=== PATIENT | female | born 1980 | race Hispanic/Latino ===

== ENCOUNTER 2017-09-28 12:20 | Emergency (ER) | payer OTHER ==
[2017-09-28] MEDS ORDERED: Famotidine 20 MG TAB ONE (12:38)
[2017-09-28] MEDS ORDERED: diphenhydrAMINE 25 MG CAP ONE (12:38)
[2017-09-28] MEDS ORDERED: predniSONE 20 MG TAB ONE (12:38)
== END 2017-09-28 13:45 | disposition home or self-care (01) ==
LOC: SCSER 12:20
DX: L50.0 Allergic urticaria (principal); F17.210 Nicotine dependence, cigarettes, uncomplicated
CPT/HCPCS: 99282; J7506

== ENCOUNTER 2019-03-06 10:03 | Emergency (ER) | payer OTHER | END 2019-03-06 10:36 | disposition short-term general hospital (02) | LOC: SCSER 10:03 | DX: O26.893 Other specified pregnancy related conditions, third trimester (principal); R10.9 Unspecified abdominal pain; O99.343 Other mental disorders complicating pregnancy, third trimester; F41.9 Anxiety disorder, unspecified; Z87.891 Personal history of nicotine dependence; Z3A.34 34 weeks gestation of pregnancy | CPT/HCPCS: 99284 ==

== ENCOUNTER 2019-03-06 11:08 | Day surgery (SDC) | payer OTHER ==
--- NOTE | 2019-03-06 11:55 | PDOC.FPROB ---
FMR OB H&P: HPI - History of Present Illness Chief Complaint: Abdominal and Vaginal Pressure Indentification: 38 yo @ 32.3 wks by 14.3 wk sono History of Present Illness: Pt states that she has been having increased lower abdominal and vaginal pressure over the last month. She states this is normally worse after a day of working when she is on her feet for the majority of the day. She went to the [facility] today to be evaluated for this and was recommended to be seen in the ED for further evaluation. Pt notes that she was found to have cervical shortening early in her and was followed by MFM up until a month ago when they discharged her due to it being stable. Pt denies any vaginal bleeding , discharged, leakage of fluid, fevers, chills, or dysuria. Pt states that she is not having any sensation of contractions and that her lower abdominal discomfort is a constant pressure that gradually worsens throughout the day as she is on her feet. Had discussion with Dr. Philippe at [facility] - she was reported at the clinic that pt was complaining of contractions and w/ her history of cervical shortening she felt it best for pt to be seen in the ED. Primary Care Physician: Jose Martin FMR OB H&P: Current - Care : 9 Para: [id number] Gestational age: 32.3 weeks Due date: 04/28/2019 Dating Criteria: 14.3 week sono - OB Labs Blood type: B RH: positive Antibody Screen: negative HIV: negative RPR: negative HepBsAg: negative Rubella: immune Quad screen: unknown Urine drug screen: not done Gonorrhea: negative Chlamydia: negative Pap Smear: Pap Negative. 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 [facility] not c/w LMP. [facility] updated to 04/28/2019 - Additional Ultrasound Additional: 02/01/19 [facility] US- [place] 89%. Normal anatomy. Transvaginal cervical length measures 15-18mm. 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 History: high risk HPV Previous LEEP - Surgical History Sx History: Umbilical hernia Previous LEEP Dermoid cyst removal - Social History Social History: Previous tobacco and alcohol use in 1st trimester, not using currently - Family History Family History: FHx: HTN FMR OB H&P: Medications - Current Home Medications: Medication Instructions Recorded Confirmed Type Pnv No.95/Ferrous Fum/Folic AC 1 capsule PO DAILY 03/06/19 03/06/19 History [ Caplet] Pyridoxine HCl (Vitamin B6) [B-6] 1 capsule PO DAILY 03/06/19 03/06/19 History Allergies/Adverse Reactions: Allergies Allergy/AdvReac Type Severity Reaction Status Date / Time penicillin G Allergy Verified 03/06/19 13:00 FMR OB H&P: ROS - Review of Systems General: denies: fever/chills, weight/appetite/sleep changes Eyes: denies: vision changes, double vision ENT: denies: nasal congestion, rhinorrhea Cardiovascular: denies: chest pain, palpitation, edema Respiratory: denies: cough, congestion, shortness of breath Gastrointestinal: reports: abdominal pain. denies: nausea, vomiting, diarrhea Genitourinary (Female): reports: vaginal pressure. denies: dysuria, vaginal discharge, vaginal pain, vaginal bleeding, contractions Musculoskeletal: denies: pain, swelling Neurologic: denies: numbness, weakness, headache Integumentary: denies: itching, rash, lesions Psychological: denies: depression, anxiety FMR OB H&P: Vital Signs - Maternal Vital signs: BP: 110/62 HR: 83 Sat O2: 99% - Heart Tones Baseline: 155 Variability: moderate Acceleration: present Deceleration: absent Category: category 1 [place] contractions every: None FMR OB H&P: Physical Exam - Physical Exam General: NAD, awake, alert and oriented HEENT: EOMI, MMM, no scleral icterus, grossly normal vision, grossly normal hearing Neck: supple, FROM Heart: RRR, normal S1/S2, no murmurs/rubs/gallops Deviation from normal: trace pitting edema General: CTAB, no respiratory distress, good air movement, no rales/rhonchi, no wheezing Abdomen: soft, gravid, non-tender Musculoskeletal: pulses present, FROM in all four extremities Neurological: cranial nerves II through XII intact, sensation to pain,touch and proprioception grossly normal Skin: no rash, good tugor, capillary refill <2 seconds Lymphatic: no unusual bruising or bleeding, no purpura Psychiatric: intact recent and remote memory, good judgement and insight, normal mood and affect FMR OB H&P: A/P - Problem List (1) Third trimester at less than 36 weeks Status: Acute Code(s): Z34.93 - ENCNTR FOR SUPRVSN OF NORMAL PREG, UNSP, THIRD TRIMESTER (2) Round ligament pain Status: Acute Code(s): N94.9 - UNSP COND ASSOC W FEMALE GENITAL ORGANS AND MENSTRUAL CYCLE Disposition: 3rd Trimester - Round Ligament Pain - No alarms sx - Vitals WNL - Reported sx consistent with RLP - No contractions on monitor - Cat 1 strip - Nml physical exam - Pt has follow up w/ PCP next week - Gave measures for symptomatic relief including tylenol, heating pad, support belt Dispo: Discharge from L&D with routine follow up Discussion: Date/Time: 03/06/19 4574 This H&P was discussed with Dr. Carpenter and Dr. Jackson who agree with the above documentation and plan. Signature: Chava Obrien - PGY1 Addendum - Attending - Attending Attestation Date/Time: 03/06/19 8560 I personally evaluated the patient and discussed the management with Dr. Obrien I agree with the History, Examination, Assessment and Plan documented above with any addition or exceptions noted below - 38 yo @32.3 weeks presented c/o vaginal/pelvic presuure. Was unsure if this is normal for this stage in . Denies any ctx, LOF, VB. (+) FM. Afebrile VSS. Exam repeated and agree with resident's findings. Cat 1 FHTs. No ctx. A/P: 1) Round ligament pain- d/c home and follow-uo as scheduled.
[2019-03-06 13:05] VITALS: BMI 27.6
[2019-03-06] MEDS ORDERED: hydrALAZINE 20 MG/ML VIAL SLOW IVP PRN (14:33)
== END 2019-03-06 13:38 | disposition home health service (06) ==
LOC: L&D/OP 11:08
PROVIDERS: ATTEND Family Medicine
DX: Z34.93 Encounter for supervision of normal pregnancy, unspecified, third trimester (principal); N94.9 Unspecified condition associated with female genital organs and menstrual cycle; Z87.891 Personal history of nicotine dependence; Z3A.32 32 weeks gestation of pregnancy; Z88.0 Allergy status to penicillin

== ENCOUNTER 2019-04-20 11:39 | Observation (INO) | payer OTHER ==
[2019-04-20] MEDS ORDERED: hydrALAZINE 20 MG/ML VIAL SLOW IVP PRN (12:41)
[2019-04-20 12:43] VITALS: BMI 28.6
--- NOTE | 2019-04-20 13:15 | PDOC.FPROB ---
FMR OB H&P: HPI - History of Present Illness Chief Complaint: ctx and spotting Indentification: at 38.6 by 14w US History of Present Illness: Presents to L&D for ctx that woke her from sleep. Unable to tell how often they are coming, not terribly painful. Has not had anything to drink today. Had sex last night. Onset of light spotting on toilet paper after she urinates. Denies abnormal vaginal d/c, LOF, VB, decreased FM, dysuria, frequency, or urgency. Hx of trichomonas in prior but no other STIs. Primary Care Physician: NOHEMY Philippe FMR OB H&P: Current - Care : 9 Para: 7 Gestational age: 38.6 Due date: 04/28/19 Dating Criteria: 14w US Course/Complications: A1 GDM hx of Shortened cervix AMA H/O child with Down Syndrome Anemia in Smoking and ETOH use in 1T - OB Labs Blood type: B RH: positive Antibody Screen: positive HIV: negative RPR: negative HepBsAg: negative Rubella: immune Gonorrhea: negative Chlamydia: negative 3 hour GTT: 74, 188, 162, 88 GBS: negative H&H: 11.2/33.1 FMR OB H&P: History - Past Medical History PMH: None - OB History OB History: 9 pregnancies, #4 is miscarriage #8 was delivery at 34wk - 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 FMR OB H&P: Medications - Current Home Medications: Medication Instructions Recorded Confirmed Type Pnv No.95/Ferrous Fum/Folic AC 1 capsule PO DAILY 03/06/19 04/20/19 History [ Caplet] Pyridoxine HCl (Vitamin B6) [B-6] 1 capsule PO DAILY 03/06/19 04/20/19 History Fluconazole [Diflucan] 150 mg PO ONE #1 tablet 04/20/19 Rx hydrALAZINE [Apresoline] 5 mg SLOW IVP ONE PRN vial 04/20/19 Rx Allergies/Adverse Reactions: Allergies Allergy/AdvReac Type Severity Reaction Status Date / Time penicillin G Allergy Verified 03/06/19 13:00 FMR OB H&P: ROS - Review of Systems General: denies: fever/chills, recent trauma Eyes: denies: vision changes, double vision, scotomas ENT: denies: nasal congestion, rhinorrhea Cardiovascular: denies: chest pain, palpitation, edema Respiratory: denies: cough, congestion, shortness of breath Gastrointestinal: reports: cramping. denies: abdominal pain, indigestion Genitourinary (Female): denies: incontinence, dysuria, hematuria, polyuria, vaginal discharge Musculoskeletal: denies: pain Neurologic: denies: numbness, syncope, seizures, weakness Integumentary: denies: itching, rash Breast: denies: lumps, bumps Hematologic/Lymphatic: denies: prolonged or excessive bleeding Psychological: denies: depression, anxiety FMR OB H&P: Vital Signs - Heart Tones Baseline: 135 Variability: moderate Acceleration: present Deceleration: absent Category: category 1 [place] contractions every: 5-15 FMR OB H&P: Physical Exam - Physical Exam General: NAD HEENT: MMM, grossly normal vision, grossly normal hearing Heart: RRR General: no respiratory distress Abdomen: soft, gravid, non-tender Musculoskeletal: normal gait and station - Pelvic Exam Cervix: no lesions, no blood SVE: Membranes: intact FMR OB H&P: A/P - Problem List (1) Term Status: Acute Code(s): Z34.90 - ENCNTR FOR SUPRVSN OF NORMAL , UNSP, UNSP TRIMESTER (2) Gestational diabetes Status: Acute Code(s): O24.419 - GESTATIONAL DIABETES MELLITUS IN , UNSP CONTROL (3) Advanced maternal age (AMA) in Status: Acute Code(s): ZFG4930 - (4) Cervical shortening Status: Acute Code(s): O26.879 - CERVICAL SHORTENING, UNSPECIFIED TRIMESTER Disposition: Term with Cx and spotting - q5-15min ctx on the monitor - SVE - UA pending - post-coital spotting, reports has now resolved. - encourage PO intake A1 GDM - reports home sugars w/in 70-100 range AMA and hx of Downs Syndrome Child - opted out of quad screen Cervical Shortening with Hx of LEEP - aware Does not appear to be in labor. UA pending but likely send home with return precautions. Pt has f/u appt next with with Dr. Philippe. Discussion: Date/Time: 04/20/19 1033 This H&P was discussed with [] and [] who agree with the above documentation and plan. Addendum - Attending - Attending Attestation Date/Time: 04/20/19 6705 I personally evaluated the patient and discussed the management with Dr. Stock. I agree with the History, Examination, Assessment and Plan documented above with any addition or exceptions noted below. Cat 1 strip, no evidence of rupture. Workup as listed. Ok for d/c home.
[2019-04-20 15:02] LABS: Bacteria/HPF None Seen HPF (None Seen); Bilirubin Negative (Negative); Blood, Urine Negative (Negative); Clarity Clear (Clear); Glucose, Urine (Dipstick) Normal (Negative); Leukocyte Negative Leu/uL (Negative); Nitrite Negative (Negative); Protein, Urine (Dipstick) Negative (Neg-Trace); RBC/HPF 0-3 HPF (0-3); Squamous Epithelial 0-3 HPF (0-3); WBC/HPF 0-3 HPF (0-3)
--- NOTE | 2019-04-20 15:39 | PDOC.EVN ---
Event Note - Event Note Event Note: Pt doing well. Still feeling ctx some, monitor with ctx q5-15min. Pt SVE 05/07/ 3. Exam with thick vaginal discharge and pt reporting vaginal itching. VP3 collected as well as GC/C. UA collected and wnl. Discussed d/c home with pt and return precautions.
[2019-04-21] MEDS ORDERED: FLU VACC QS2019-20(6MOS UP)/PF 60 MCG/0.5 ML SYRINGE IM ONE (09:00)
[2019-04-25 00:55] LABS: Chlamydia by PCR Not Detected (NotDetected); GC by PCR Not Detected (NotDetected)
== END 2019-04-20 15:57 | disposition home or self-care (01) ==
LOC: L&D/OP 11:39 → L&D 14:33
PROVIDERS: ADMIT Obstetrics & Gynecology; ATTEND Obstetrics & Gynecology
DX: O47.1 False labor at or after 37 completed weeks of gestation (principal); O26.853 Spotting complicating pregnancy, third trimester; O26.873 Cervical shortening, third trimester; O24.419 Gestational diabetes mellitus in pregnancy, unspecified control; O99.013 Anemia complicating pregnancy, third trimester; D64.9 Anemia, unspecified; O09.523 Supervision of elderly multigravida, third trimester; O09.213 Supervision of pregnancy with history of pre-term labor, third trimester; O99.89 Other specified diseases and conditions complicating pregnancy, childbirth and the puerperium; N89.8 Other specified noninflammatory disorders of vagina; Z3A.38 38 weeks gestation of pregnancy; Z87.891 Personal history of nicotine dependence; Z79.899 Other long term (current) drug therapy; Z88.0 Allergy status to penicillin
CPT/HCPCS: 81003; 87480; 87491; 87510; 87591; 87660; 99282; G0378

== ENCOUNTER 2019-04-22 05:09 | Inpatient (IN) | payer OTHER ==
[2019-04-22 05:35] VITALS: BMI 33.5
[2019-04-22] MEDS ORDERED: hydrALAZINE 20 MG/ML VIAL SLOW IVP PRN ×4 (05:55→09:57)
--- NOTE | 2019-04-22 05:55 | PDOC.FPROB ---
FMR OB H&P: HPI - History of Present Illness Chief Complaint: contractions Indentification: at 39.1wks by 14w US ([facility] 04/28/2019) History of Present Illness: Autumn presents to L&D for contractions. She went to [facility] at 0100 and noted that she was having contractions. Once she got home, she noted that they were more painful. She tried waiting them out, but the last time she went to the restroom she noted that there was dark red blood in the toilet and on the paper, like old period blood, which prompted her to come in. She complains of contractions that are 9-10/10 in severity, every 5-6 minutes. She denies loss of fluid, decreased movement, bright red vaginal bleeding, hematuria, or dysuria. She has had increased white discharge. She was recently sent home w/ rx for yeast infection, however she did not pick pulling machine tender the medication. She denies any other infections in this . Primary Care Physician: CALISTA - Dr. April Philippe FMR OB H&P: Current - Care : 9 Para: [id number] Gestational age: 39.1 Due date: 04/28/2019 Dating Criteria: 14wk sono Course/Complications: A1 GDM - sugars 70-100. 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 FMR OB H&P: Medications - Current Home Medications: Medication Instructions Recorded Confirmed Type Pnv No.95/Ferrous Fum/Folic AC 1 capsule PO DAILY 03/06/19 04/22/19 History [ Caplet] Pyridoxine HCl (Vitamin B6) [B-6] 1 capsule PO DAILY 03/06/19 04/22/19 History Allergies/Adverse Reactions: Allergies Allergy/AdvReac Type Severity Reaction Status Date / Time ibuprofen Allergy Anaphylaxis Verified 04/22/19 07:15 penicillin G Allergy Rash Verified 04/22/19 07:15 FMR OB H&P: ROS - Review of Systems General: denies: fever/chills, weight/appetite/sleep changes, fatigue Eyes: denies: eye pain, vision changes ENT: denies: nasal congestion, rhinorrhea, sinus pain/pressure, sore throat Cardiovascular: denies: chest pain, palpitation, edema Respiratory: denies: cough, congestion, shortness of breath Gastrointestinal: denies: abdominal pain, indigestion, bloating, nausea, vomiting, diarrhea, constipation, bright red blood Genitourinary (Female): reports: vaginal discharge, vaginal bleeding, contractions, vaginal pressure. denies: dysuria, hematuria, polyuria, vaginal pain Musculoskeletal: denies: pain, stiffness Neurologic: denies: numbness, syncope, seizures, weakness Integumentary: denies: itching, rash Endocrine: denies: cold intolerance, heat intolerance, polydipsia, polyuria Psychological: denies: depression, anxiety FMR OB H&P: Vital Signs - Maternal Vital signs: Vital Signs - First Documented Temp Resp BP 98.4 F 20 131/68 04/22/19 05:28 04/22/19 05:28 04/22/19 05:28 - Heart Tones Baseline: 150 Variability: minimal Acceleration: absent Deceleration: absent Category: category 2 [place] contractions every: 5-6min FMR OB H&P: Physical Exam - Physical Exam General: NAD, awake, alert and oriented HEENT: normocephalic and atraumatic, PERRLA, EOMI, MMM, conjunctiva clear, grossly normal vision, grossly normal hearing Neck: supple Heart: RRR, normal S1/S2, no murmurs/rubs/gallops General: CTAB, no respiratory distress, good air movement Abdomen: soft, gravid, non-tender, bowel sound present Musculoskeletal: pulses present, no atrophy Neurological: sensation to pain,touch and proprioception grossly normal Skin: no rash, good tugor, capillary refill <2 seconds Lymphatic: no unusual bruising or bleeding, no purpura, no petechia Psychiatric: intact recent and remote memory, good judgement and insight, normal mood and affect - Pelvic Exam SVE: 0530 /-3 per RN FMR OB H&P: A/P - Problem List (1) Advanced maternal age (AMA) in Current Visit: No Status: Acute Code(s): [id number] - (2) Cervical shortening Current Visit: No Status: Acute Code(s): O26.879 - CERVICAL SHORTENING, UNSPECIFIED TRIMESTER (3) Gestational diabetes Current Visit: No Status: Acute Code(s): O24.419 - GESTATIONAL DIABETES MELLITUS IN , UNSP CONTROL (4) Term Current Visit: No Status: Acute Code(s): Z34.90 - ENCNTR FOR SUPRVSN OF NORMAL , UNSP, UNSP TRIMESTER Disposition: Term IUP w/ contractions and dark red vaginal bleeding - q5-6 min ctx on the monitor - SVE /-3 @ 0530 per RN - Vaginal bleeding likely 2/2 cervical changes. - Category 2 strip on monitoring for the past 30 minutes. HR 150, minimal variability, no reactivity. Encouraged PO intake. Will start IV w/ D5LR @ 125. ( Patient has A1GDM, will obtain POC accucheck and schedule them q 4 hours) - Will monitor for 2 hours on monitoring and assess for improvement of strip and cervical changes. - BPP ordered Vaginal candidiasis - dx /. Has not taken medication. - Discharge is not bothersome. - Unnecessary to treat at the present time A1 GDM - reports home sugars w/in 70-100 range, most recent sugar 90 "a couple days ago ". - Will get POC accucheck and schedule accuchecks while on D5 LR AMA and hx of Downs Syndrome Child - Declined quad screen Cervical Shortening with Hx of LEEP - aware Discussion: Date/Time: 04/22/19 0580 This H&P was discussed with Dr. Bernardo Tapia and Dr. Abby Gutiérrez who agree with the above documentation and plan. Signature: -Hany LOMAS PGY1 Addendum - Attending - Attending Attestation Date/Time: 04/22/19 1541 I personally evaluated the patient and discussed the management with the team. I agree with the History, Examination, Assessment and Plan documented above with any addition or exceptions noted below.
[2019-04-22] MEDS ORDERED: Dextrose 5%-Lactated Ringers 1,000 ML IV SCH (06:00)
[2019-04-22] MEDS ORDERED: Acetaminophen 500 MG TAB PO SCH (07:15)
[2019-04-22] MEDS ORDERED: Ondansetron PF 4 MG/2 ML Vial IVP PRN ×2 (07:48→09:57)
[2019-04-22] MEDS ORDERED: Promethazine HCl 25 MG/ML VIAL IM PRN ×2 (07:48→09:57)
[2019-04-22] MEDS ORDERED: NS / Oxytocin 40 units/1000ml 1,000 ML ONE (07:51)
[2019-04-22] MEDS ORDERED: Misoprostol 200 MCG TAB ONE (07:52)
[2019-04-22] MEDS ORDERED: Lactated Ringer's 1,000 ML IV SCH (08:00)
--- NOTE | 2019-04-22 08:03 | ULT ---
ULTRASOUND BIOPHYSICAL PROFILE: HISTORY: distress, minimal variability, noted activity FINDINGS: A single live intrauterine gestation is seen. heart rate:158bpm ALEX: 16.2 cm Placenta: Anterior without placenta previa OB biophysical profile: tone: 2 breathin movements: 2 Amniotic fluid: 2 IMPRESSION: The ultrasound biophysical profile score is 8 out of 8.
[2019-04-22 08:05] LABS: Hemoglobin 12.9 g/dL (12.0-16.0); Mean Corpuscular HGB CONC 35.4 g/dL (32.0-36.0); Mean Corpuscular Hemoglobin 32.1 pg (27.0-31.0); Mean Corpuscular Volume 90.8 fL (78.0-98.0); Mean Platelet Volume 8.7 fL (7.4-10.4); Platelet Count 198 thou/uL (130-400); RBC Distribution Width 12.2 % (11.5-14.5); Red Blood Cell (RBC) Count 4.02 mill/uL (4.20-5.40); White Blood Cell (WBC) Count 11.8 thou/uL (4.8-10.8)
[2019-04-22] MEDS ORDERED: HYDROcodone/Acetaminophen 5/325 mg Tablet PO PRN (08:37)
[2019-04-22] MEDS ORDERED: Bisacodyl 10 MG SUPP PR PRN ×2 (08:37→09:57)
[2019-04-22] MEDS ORDERED: Adacel (T-DAP) 0.5 ML SYRINGE IM ONE (08:37)
[2019-04-22] MEDS ORDERED: Milk Of Magnesia 30 ML UDCUP PO PRN ×2 (08:37→09:57)
[2019-04-22] MEDS ORDERED: NS / Oxytocin 40 units/1000ml 1,000 ML IV SCH ×2 (08:37→09:57)
[2019-04-22] MEDS ORDERED: Acetaminophen 325 MG TAB PO PRN (08:37)
[2019-04-22 08:47] LABS: Hep B Surf Ag Non-Reactive S/CO (NonReactive); Syphilis Antibody Nonreactive (Nonreactive); Syphilis Antibody Index 0.06 S/CO (<1.00 Non-Reactive)
--- NOTE | 2019-04-22 08:50 | PDOC.OPDEL ---
OB Operative/Delivery Note Delivery Dr/Surgeon: Mckinley Gutiérrez - Additional Findings/Plan Compilations/Other Findings: Vaginal Delivery note Delivering Physicians: Mckinley Gutiérrez Attending: Regina Procedure: Spontaneous Vaginal Delivery Anesthesia: None QBL: 25 ml Pre-op Diagnosis: 1. Term intrauterine in labor 2. A1 GDM 3. H/o delivery 4. H/o short cervix 5. Anemia of 6. AMA Post-op Diagnosis: 1. Term intrauterine , delivered 2. same as above Indications: A 39y/o female presented in Delivery Note: This is 39y/o female now P 7118 @ 39.1 wks who delivered a viable M infant at 0812 04/22/2019. She quickly dilated from a 3 to a 9 within 2 hours, while membranes were intact. Prior to the start of pushing, AROM was performed with [place], and thin meconium fluid was found. Following an uneventful antepartum course, a vigorous M was delivered over an intact perineum in the occipitoanterior position. Anterior Shoulder and then remainder of the body delivered. No nuchal cord. The head was held down and mouth and nares were bulb suctioned. Cord clamped and cut and cord blood collected. Placenta delivered intact with a 3 vessel cord noted. Fundal massage was performed and the fundus was firm. The cervix and vagina were inspected and found to be free of lacerations. went to nursery in good condition for routine care. Apgars were 9/9 at 1 & 5 minutes, respectively. Patient tolerated delivery well and went to after routine recovery/ care. Addendum - Attending - Attending Attestation Date/Time: 04/22/19 4616 I was present for the entire delivery.
[2019-04-22] MEDS ORDERED: Docusate Calcium (SURFAK) 240 MG CAP PO SCH (09:00)
[2019-04-22] MEDS ORDERED: Lanolin Ointment 7 GM TUBE TOP PRN (09:57)
[2019-04-22] MEDS ORDERED: Misoprostol 200 MCG TAB VAG PRN (09:57)
[2019-04-22] MEDS ORDERED: Benzocaine-Menthol 82.5 ML CAN TOP PRN (09:57)
[2019-04-22] MEDS ORDERED: Methylergonovine 0.2 MG/ML VIAL IM PRN (09:57)
[2019-04-22] MEDS: HYDROcodone/Acetaminophen 5/325 mg Tablet PO PRN ×2 (14:31→21:43)
[2019-04-22] MEDS: Prenatal Vitamin 1 TAB PO SCH (17:23)
[2019-04-22] MEDS: Docusate Calcium (SURFAK) 240 MG CAP PO SCH ×2 (17:23→21:43)
[2019-04-22] MEDS: Ferrous Sulfate 325 MG TAB PO SCH (17:24)
[2019-04-23] MEDS: HYDROcodone/Acetaminophen 5/325 mg Tablet PO PRN (04:12)
[2019-04-23 04:30] VITALS: TEMP 98
--- NOTE | 2019-04-23 07:23 | PDOC.PP ---
Post Progress Note Post Day #: 1 Subjective: Patient resting comfortably in bed. No complaints. States she is tolerating PO. She is ambulating well. She has voided and is passing gas. No BM yet. Patient is bottle feeding her baby. Patient has minimal lochia - less than a period amount. Denies any chest pain, SOB, vision changes, headache, LE swelling, abdominal pain. Denies fever/chills, NVD. PO intake tolerated: yes Flatus: yes Ambulation: yes Vital Signs (12 hours) Temp Pulse Resp BP Pulse Ox 04/23/19 04:10 98.0 F 75 18 114/59 L 04/23/19 00:15 98.5 F 71 18 107/56 L 04/22/19 20:20 98.2 F 71 18 123/70 99 Weight Weight 88.451 kg - Physical Examination General: NAD Cardiovascular: no m/r/g, RRR Respiratory: clear to auscultation bilaterally, non-labored breathing Abdominal: + bowel sounds, lochia (minimal), no distention, appropriately TTP Neurological: no gross focal deficits Psychiatric: A&Ox3, normal affect Result Diagrams: 04/22/19 07:53 Additional Labs: Post Labs Blood Type B POSITIVE 04/22/19 07:53 Hep Bs Antigen Non-Reactive S/CO (NonReactive) 04/22/19 07:53 (1) Advanced maternal age (AMA) in Code(s): [id number] - Status: Acute (2) Term Code(s): Z34.90 - ENCNTR FOR SUPRVSN OF NORMAL , UNSP, UNSP TRIMESTER Status: Acute - Assessment/Plan Term , delivered - Routine PP care - Tylenol/norco for pain - Tolerating PO, ambulating, voiding and passing gas. No BM yet. Bowel regimen in place. Dispo: possible dc later today pending baby's bili Case discussed with Dr. Germain Addendum - Attending - Attending Attestation Date/Time: 04/23/19 0642 I personally evaluated the patient and discussed the management with Dr. jones I agree with the History, Examination, Assessment and Plan documented above with any addition or exceptions noted below. D/C today.
[2019-04-23] MEDS ORDERED: Acetaminophen 325 MG TAB PO PRN (07:24)
[2019-04-23] MEDS ORDERED: Ferrous Sulfate 325 MG TAB PO SCH (08:00)
[2019-04-23 08:20] VITALS: BP 100/55
[2019-04-23] MEDS: Ferrous Sulfate 325 MG TAB PO SCH (08:41)
[2019-04-23] MEDS: Docusate Calcium (SURFAK) 240 MG CAP PO SCH (09:24)
[2019-04-23] MEDS: Prenatal Vitamin 1 TAB PO SCH (09:24)
== END 2019-04-23 14:10 | disposition home or self-care (01) | DRG 806 ==
LOC: L&D/OP 05:09 → L&D 07:48 → 3SW 15:24
PROVIDERS: ADMIT Emergency Medicine; ATTEND Emergency Medicine
PROC: 10907ZC Drainage of Amniotic Fluid, Therapeutic from Products of Conception, Via Natural or Artificial Opening (ICD-10-PCS; principal; 2019-04-22)
PROC: 10E0XZZ Delivery of Products of Conception, External Approach (ICD-10-PCS; 2019-04-22)
DX: O99.02 Anemia complicating childbirth (principal); O26.873 Cervical shortening, third trimester; Z37.0 Single live birth; O98.82 Other maternal infectious and parasitic diseases complicating childbirth; D64.9 Anemia, unspecified; O24.429 Gestational diabetes mellitus in childbirth, unspecified control; O77.0 Labor and delivery complicated by meconium in amniotic fluid; O62.3 Precipitate labor; Z3A.39 39 weeks gestation of pregnancy; B37.3 Candidiasis of vulva and vagina
CPT/HCPCS: 36416; 76815; 76819; 85027; 86780; 86850; 86900; 86901; 87340; 99285

== ENCOUNTER 2019-10-29 21:50 | Emergency (ER) | payer OTHER | END 2019-10-29 23:07 | disposition left against medical advice (07) | LOC: ERS 21:50 | DX: Z53.21 Procedure and treatment not carried out due to patient leaving prior to being seen by health care provider (principal) ==